=== PATIENT | male | born 1990 | race American Indian/Alaskan Native ===

== ENCOUNTER 2017-07-20 00:40 | Emergency (ER) | payer BC ==
[2017-07-20 01:39] LABS: Basophils % (Auto) 1.1 % (0.0-1.8); Eosinophils % (Auto) 1.7 % (0.0-4.3); Hematocrit 48.4 % (35.5-45.6); Hemoglobin 16.6 gm/dl (11.8-15.2); Mean Corpuscular HGB Conc 34 % (32-34); Mean Corpuscular Hemoglobin 31 pg (28-32); Mean Corpuscular Volume 90 fl (84-94); Platelet Count 217 K/mm3 (140-440); Red Blood Count 5.36 M/mm3 (3.65-5.03); Red Cell Distribution Width 13.1 % (13.2-15.2); White Blood Count 7.3 K/mm3 (4.5-11.0)
[2017-07-20 01:54] LABS: Anion Gap 20 mmol/L; BUN/Creatinine Ratio 16; Blood Urea Nitrogen 19 mg/dL (9-20); Calcium 9.8 mg/dL (8.4-10.2); Carbon Dioxide 24 mmol/L (22-30); Chloride 100.7 mmol/L (98-107); Glucose 102 mg/dL (75-100); Potassium 3.5 mmol/L (3.6-5.0); Sodium 141 mmol/L (137-145)
--- NOTE | 2017-07-20 04:10 | Cat Scan Report ---
FINAL REPORT EXAM: CT HEAD/BRAIN WO CON HISTORY: Right Face and arm numbness TECHNIQUE: CT imaging acquired through the head without intravenous contrast. Transaxial reformations are provided. PRIORS: None. FINDINGS: The ventricles, cisterns and sulci are normal. No intraparenchymal or extra-axial mass, hemorrhage, or mass effect. Vora and white-matter differentiation is normal. Normal spherical shape of the globes. Paranasal sinuses and mastoid air cells are clear. No skull or facial fracture visualized. IMPRESSION: No acute intracranial abnormality. Consider additional imaging including MRI for worsening/persistent symptoms.
--- NOTE | 2017-07-20 07:48 | Emergency Department Report ---
ED Neuro Deficit HPI - General Chief Complaint: Neuro Symptoms/Deficit Stated Complaint: NUMBNESS R SIDE OF FACE Time Seen by Provider: 07/20/17 07:44 Source: patient Mode of arrival: Ambulatory Limitations: No Limitations - History of Present Illness Initial Comments: Patient airport and numbness to right face and right arm since Wednesday afternoon. He states that he has limited range of motion in his left arm. Patient's that he has pain on movement to his right scapula. Pain is 10 out of 10 and achy. Denies any loss of sensation to his right upper extremity. He said he was doing pushups but this is nothing new for him and he went to bed and when he woke up he started having symptoms denies any chest pain. He is also complaining the pain to the right side of his neck. Denies any fever or chills. Denies any headache or dizziness. Patient is HIV positive but he does not follow-up with any specific clinic. He does not have a primary care doctor but he said he would like to be referred to one. Denies any nausea or vomiting. Denies any abdominal or back pain Onset/Timin -: days(s) Location: right arm (Limited range of motion), other (left shoulder and left neck) Presenting Symptoms: Present: Weak/Paralyzed One Side (she reported numbness to right facial area and right arm also reported pain to right shoulder, and right neck and right scapula) History of same: No Place: home Severity: severe Quality: numb, constant Improves With: rest Worsens With: none On Anticoagulants: No Context: sudden onset Associated Symptoms: weakness (right upper extremity). denies: confusion, chest pain, cough, diaphoresis, fever/chills, headaches, loss of appetite, malise, nausea/vomiting, vertigo, seizures, shortness of breath, syncope Treatments Prior to Arrival: none - Related Data Home Medications: Previous Rx's Medication Instructions Recorded Last Taken Type Cephalexin [Keflex] 500 mg PO Q8HR #21 cap 07/20/17 Unknown Rx Naproxen [Naprosyn TAB] 500 mg PO BID PRN #10 tablet 07/20/17 Unknown Rx Allergies/Adverse Reactions: Allergies Allergy/AdvReac Type Severity Reaction Status Date / Time sulfamethoxazole Allergy Anaphylaxis Verified 07/20/17 01:08 [From Bactrim] trimethoprim [From Bactrim] Allergy Anaphylaxis Verified 07/20/17 01:08 ED Review of Systems ROS: Stated complaint: NUMBNESS R SIDE OF FACE Other details as noted in HPI Comment: All other systems reviewed and negative Constitutional: no symptoms reported Respiratory: no symptoms reported Cardiovascular: denies: chest pain, palpitations, dyspnea on exertion, orthopnea , edema, syncope, paroxysmal nocturnal dyspnea Gastrointestinal: denies: abdominal pain, nausea, vomiting, diarrhea, constipation, hematemesis, melena, hematochezia Genitourinary: denies: urgency, dysuria, frequency, hematuria, discharge, testicular pain, testicular mass Musculoskeletal: arthralgia. denies: back pain, joint swelling, myalgia Skin: denies: rash Neurological: weakness, numbness. denies: headache, paresthesias, confusion, abnormal gait, vertigo Psychiatric: denies: anxiety ED Past Medical Hx - Past Medical History Previous Medical History?: Yes Hx HIV: Yes - Surgical History Past Surgical History?: No - Family History Family history: no significant - Social History Smoking Status: Current Every Day Smoker Substance Use Type: None Other Social History: Patient is single - Medications Home Medications: Home Medications Medication Instructions Recorded Confirmed Last Taken Type Cephalexin [Keflex] 500 mg PO Q8HR #21 cap 07/20/17 Unknown Rx Naproxen [Naprosyn TAB] 500 mg PO BID PRN #10 tablet 07/20/17 Unknown Rx ED Neuro Physical Exam - General Limitations: No Limitations General appearance: alert, in no apparent distress Suspected Stroke: No - Head Head exam: Present: atraumatic, normocephalic, normal inspection - Expanded Head Exam Expanded Head exam: Absent: laceration, abrasion, contusion, hematoma, racoon eyes, daniels's sign, general tenderness, tenderness of temporal artery, CSF rhinorrhea , CSF otorrhea - Eye Eye exam: Present: normal appearance, PERRL, EOMI. Absent: nystagmus, periorbital swelling, periorbital tenderness Pupils: Present: normal accommodation - ENT ENT exam: Present: normal exam, normal orophraynx, mucous membranes moist, TM's normal bilaterally, normal external ear exam, other (normal facial sensation. Patient able to open and close mouth without difficulties) - Neck Neck exam: Present: normal inspection, tenderness (right lateral neck), full ROM. Absent: meningismus, lymphadenopathy - Expanded Neck Exam Expanded Neck exam: Present: tenderness (lateral neck), other (C-spine tenderness). Absent: midline deformity, anterior neck swelling, tracheal deviation - Respiratory Respiratory exam: Present: normal lung sounds bilaterally. Absent: respiratory distress, wheezes, rales, rhonchi, stridor, chest wall tenderness, accessory muscle use, decreased breath sounds, prolonged expiratory - Cardiovascular Cardiovascular Exam: Present: normal rhythm, tachycardia, normal heart sounds. Absent: systolic murmur, diastolic murmur - GI/Abdominal GI/Abdominal exam: Present: soft, normal bowel sounds. Absent: distended, tenderness, guarding, rebound, rigid, organomegaly, mass, bruit, pulsatile mass , hernia - Extremities Exam Extremities exam: Present: normal inspection, tenderness (palpated at right shoulder blade joint), normal capillary refill, other (no clubbing cyanosis or edema to extremities, +2 pulses to all extremities. No neurovascular compromise ). Absent: full ROM (I did range of motion to right upper extremity at shoulder and arm), pedal edema, joint swelling, calf tenderness - Expanded Upper Extremity Exam Right General: Present: normal inspection. Absent: laceration, abrasion, nail injury (#), foreign body, amputation, avulsion Shoulder Exam: Present: normal inspection, tenderness. Absent: full ROM ( Limited range of motion to right shoulder), swelling, abrasion, laceration, ecchymosis, deformity, crepidus, dislocation, erythema, tenderness over AC joint Upper Arm exam: Present: normal inspection, full ROM. Absent: tenderness, swelling, abrasion, laceration, ecchymosis, deformity, crepidus, dislocation, erythema Elbow exam: Present: normal inspection, full ROM. Absent: tenderness, swelling , abrasion, laceration, ecchymosis, deformity, crepidus, dislocation, erythema, effusion, pain w/ pronation/supination, tenderness over radial head Forearm Wrist exam: Present: normal inspection, full ROM. Absent: tenderness, swelling, abrasion, laceration, ecchymosis, deformity, crepidus, dislocation, erythema, tenderness over anatomical snuff box, pain with axial thumb loading Hand Wrist exam: Present: normal inspection, full ROM. Absent: tenderness, swelling, abrasion, laceration, ecchymosis, deformity, crepidus, dislocation, erythema, amputation, nail avulsion, subungual hematoma Neuro motor exam: Present: wrist extension intact, thumb opposition intact, thumb IP flexion intact Neurosensory exam: Present: 2-point discrimination, radial nerve intact, ulnar nerve intact, median nerve intact Vascular: Present: normal capillary refill, radial pulse, brachial pulse, ulnar pulse. Absent: vascular compromise, Pallo, pulse deficit radial art, pulse deficit ulnar art, pulse deficit brachial art - Back Exam Back exam: Present: normal inspection, full ROM. Absent: tenderness, CVA tenderness (R), CVA tenderness (L), muscle spasm, paraspinal tenderness, vertebral tenderness, rash noted - Neurological Exam Neurological exam: Present: alert, oriented X3, normal gait, reflexes normal. Absent: motor sensory deficit ( 3/5 strength in right upper extremity normal sensation) - NIHSS Assessment Interval: Baseline 1a. Level of Consciousness: alert 1b. LOC Questions: answers correctly 1c. LOC Commands: performs tasks correctly 2. Best Gaze: normal 3. Visual: no visual loss 4. Facial Palsy: normal symmetrical movement 5b. Motor Arm Right: no drift 5a. Motor Arm Left: no drift 6a. Motor Leg Left: no drift 6b. Motor Leg Right: no drift 7. Limb Ataxia: absent 8. Sensory: normal 9. Best Language: no aphasia 10. Dysarthria: normal 11. Extinction/Inattention: no abnormality Total Score: 0 Stroke Severity: No Stroke Symptoms - Psychiatric Psychiatric exam: Present: normal affect, normal mood - Skin Skin exam: Present: warm, dry, intact, normal color. Absent: rash ED Course Vital Signs 07/20/17 07/20/17 07/20/17 00:55 07:51 08:09 Temperature 97.9 F 98.4 F Pulse Rate 111 H 63 Respiratory 18 17 17 Rate Blood Pressure 118/71 Blood Pressure 107/72 [Left] O2 Sat by Pulse 98 98 98 Oximetry 07/20/17 11:00 Temperature Pulse Rate 70 Respiratory 16 Rate Blood Pressure Blood Pressure 123/78 [Left] O2 Sat by Pulse 99 Oximetry - Reevaluation(s) Reevaluation #1: 07/20/17 09:54 Pt assessed by myself and Dr. Brown. He is having significant shoulder pain with passive range of motion but range of motion to shoulder and right upper extremity is diminished. Patient's CK is elevated and he is currently receiving an IV fluid normal saline 2 L. Patient also received Toradol 60 mg IM and Decadron 10 mg IM in emergency room. Reevaluation #2: 07/20/17 11:00 Status post IV fluid, IV Toradol and Decadron patient would full range of motion to all extremities. He said he still having some pain when he raises his right arm ovaries had but he is able to do that on active range of motion without any difficulties. He denies any numbness at present. - Lab Data Result diagrams: 07/20/17 01:13 07/20/17 01:13 Lab Results 07/20/17 07/20/17 07/20/17 Range/Units 01:13 01:13 01:13 WBC 7.3 (4.5-11.0) K/mm3 RBC 5.36 H (3.65-5.03) M/mm3 Hgb 16.6 H (11.8-15.2) gm/dl Hct 48.4 H (35.5-45.6) % MCV 90 (84-94) fl MCH 31 (28-32) pg MCHC 34 (32-34) % RDW 13.1 L (13.2-15.2) % Plt Count 217 (140-440) K/mm3 Lymph % (Auto) 34.8 (13.4-35.0) % Page % (Auto) 9.3 H (0.0-7.3) % Eos % (Auto) 1.7 (0.0-4.3) % Baso % (Auto) 1.1 (0.0-1.8) % Lymph # 2.5 (1.2-5.4) K/mm3 Page # 0.7 (0.0-0.8) K/mm3 Eos # 0.1 (0.0-0.4) K/mm3 Baso # 0.1 (0.0-0.1) K/mm3 Seg Neutrophils % 53.1 (40.0-70.0) % Seg Neutrophils # 3.9 (1.8-7.7) K/mm3 Sodium 141 (137-145) mmol/L Potassium 3.5 L (3.6-5.0) mmol/L Chloride 100.7 (98-107) mmol/L Carbon Dioxide 24 (22-30) mmol/L Anion Gap 20 mmol/L BUN 19 (9-20) mg/dL Creatinine 1.2 (0.8-1.5) mg/dL Estimated GFR > 60 ml/min BUN/Creatinine Ratio 16 % Glucose 102 H (75-100) mg/dL Calcium 9.8 (8.4-10.2) mg/dL Total Bilirubin 0.50 (0.1-1.2) mg/dL Direct Bilirubin < 0.2 (0-0.2) mg/dL AST 61 H (5-40) units/L ALT 28 (7-56) units/L Alkaline Phosphatase 55 (35-129) units/L Total Creatine Kinase 1813 H (55-170) units/L Total Protein 7.8 (6.3-8.2) g/dL Albumin 4.3 (3.9-5) g/dL Albumin/Globulin Ratio 1.2 % Urine Color (Yellow) Urine Turbidity (Clear) Urine pH (5.0-7.0) Ur Specific [place] (1.003-1.030) Urine Protein (Negative) mg/dL Urine Glucose (UA) (Negative) mg/dL Urine Ketones (Negative) mg/dL Urine Blood (Negative) Urine Nitrite (Negative) Urine Bilirubin (Negative) Urine Urobilinogen (<2.0) mg/dL Ur Leukocyte Esterase (Negative) Urine WBC (Auto) (0.0-6.0) /HPF Urine RBC (Auto) (0.0-6.0) /HPF U Epithel Cells (Auto) (0-13.0) /HPF Hyaline Casts /LPF Urine Mucus /HPF 07/20/17 Range/Units 09:57 WBC (4.5-11.0) K/mm3 RBC (3.65-5.03) M/mm3 Hgb (11.8-15.2) gm/dl Hct (35.5-45.6) % MCV (84-94) fl MCH (28-32) pg MCHC (32-34) % RDW (13.2-15.2) % Plt Count (140-440) K/mm3 Lymph % (Auto) (13.4-35.0) % Page % (Auto) (0.0-7.3) % Eos % (Auto) (0.0-4.3) % Baso % (Auto) (0.0-1.8) % Lymph # (1.2-5.4) K/mm3 Page # (0.0-0.8) K/mm3 Eos # (0.0-0.4) K/mm3 Baso # (0.0-0.1) K/mm3 Seg Neutrophils % (40.0-70.0) % Seg Neutrophils # (1.8-7.7) K/mm3 Sodium (137-145) mmol/L Potassium (3.6-5.0) mmol/L Chloride (98-107) mmol/L Carbon Dioxide (22-30) mmol/L Anion Gap mmol/L BUN (9-20) mg/dL Creatinine (0.8-1.5) mg/dL Estimated GFR ml/min BUN/Creatinine Ratio % Glucose (75-100) mg/dL Calcium (8.4-10.2) mg/dL Total Bilirubin (0.1-1.2) mg/dL Direct Bilirubin (0-0.2) mg/dL AST (5-40) units/L ALT (7-56) units/L Alkaline Phosphatase (35-129) units/L Total Creatine Kinase (55-170) units/L Total Protein (6.3-8.2) g/dL Albumin (3.9-5) g/dL Albumin/Globulin Ratio % Urine Color Yellow (Yellow) Urine Turbidity Clear (Clear) Urine pH 5.0 (5.0-7.0) Ur Specific [place] 1.028 (1.003-1.030) Urine Protein 30 mg/dl (Negative) mg/dL Urine Glucose (UA) Neg (Negative) mg/dL Urine Ketones Neg (Negative) mg/dL Urine Blood Neg (Negative) Urine Nitrite Neg (Negative) Urine Bilirubin Neg (Negative) Urine Urobilinogen < 2.0 (<2.0) mg/dL Ur Leukocyte Esterase Neg (Negative) Urine WBC (Auto) 11.0 H (0.0-6.0) /HPF Urine RBC (Auto) 4.0 (0.0-6.0) /HPF U Epithel Cells (Auto) < 1.0 (0-13.0) /HPF Hyaline Casts 5 /LPF Urine Mucus 1+ /HPF Urine culture pending - Radiology Data Radiology results: report reviewed 3 right shoulder reveal no acute abnormality - Medical Decision Making ED course: Patient and present with numbness and pain to right upper extremity that has been ongoing since Wednesday of this week. He had no other symptoms and no headache, dizziness, nausea or vomiting, neck stiffness but he did have right -sided neck pain. No fever or chills. No back pain. No C-spine pain. Denies any injuries. Patient has a history of HIV but he is not being followed by infectious disease doctor because he said he hasn't had the time to find one. He is also requesting an primary care physician. CT scan of the had without contrast done which revealed no acute intracranial processes. Patient given 1 L for IV fluid after reporting that he did 100 pushups throughout that day and Wednesday and he went to bed and woke up with pain. CK was greater than 1800. He also received Toradol 60 mg IM and Decadron 10 mg IM. CBC is stable and reflect hemoconcentration which could mean the patient is dehydrated and CMP is stable. He said he felt better after medication and IV fluid and he is able to move all extremities without any difficulties and numbness has resolved. I discussed the patient all his labs and diagnostics results and he voiced understanding. Also discussed with him that he needs to return to emergency room for recheck tomorrow. I discussed with him that he has to have his CK levels rechecked to make sure that they are decreasing. I also instructed him to drink 2-3 L of fluid daily to include water, Gatorade. I discussed with him that he should try to avoid carbonated beverages. I also discussed the patient that he needs to follow-up at infectious disease doctor and I will refer him to an infectious disease doctor for follow-up HIV. He voices understanding and is discharged diagnoses and treatment plan and knows that he needs to return tomorrow approximately 11 AM to get CK level recheck. Patient is in stable condition discharged home with prescription for naproxen. - Core Measures Measure Exclusions: not indicated Critical care attestation.: If time is entered above; I have spent that time in minutes in the direct care of this critically ill patient, excluding procedure time. ED Disposition Clinical Impression: Arm paresthesia, right, Arthralgia of shoulder region, right, Elevated CK, UTI (urinary tract infection) with pyuria Neck muscle strain Qualifiers: Encounter type: initial encounter Qualified Code(s): S16.1XXA - Strain of muscle, fascia and tendon at neck level, initial encounter Rhabdomyolysis Qualifiers: Rhabdomyolysis type: traumatic Encounter type: initial encounter Qualified Code (s): T79.6XXA - Traumatic ischemia of muscle, initial encounter Disposition: TO HOME OR SELFCARE Is pt being admited?: No Does the pt Need Aspirin: No Condition: Stable Instructions: Muscle Strain (ED), Urinary Tract Infection in Men (ED), Rhabdomyolysis (ED), Paresthesia (ED), Arthralgia (ED) Additional Instructions: Please increase fluid intake to 2-3 L of fluid per day as instructed Please take Keflex 500 mg 3 times a day for elevated white count and urine Please follow up with primary care physician and infectious disease doctor as instructed and call today to schedule appointment for physical. avoid from doing any strenuous activity over the next week. take naproxen for pain as scheduled CT scan of the had and x-ray of your shoulder was normal. Remember to return to emergency room at 11 AM on 07/21/2017 for repeat CK level check. Prescriptions: Cephalexin [Keflex] 500 mg PO Q8HR #21 cap Naproxen [Naprosyn TAB] 500 mg PO BID PRN #10 tablet PRN Reason: Pain Referrals: JEFF BROTHERS MD [Staff Physician] - 2-3 Days LESTER MIRZA MD [Staff Physician] - 2-3 Days Forms: Work/School Release Form(ED)
[2017-07-20] MEDS ORDERED: DECADRON IM ONE (08:49)
[2017-07-20] MEDS ORDERED: TORADOL IM ONE (08:49)
--- NOTE | 2017-07-20 09:23 | XRay Report ---
RIGHT SHOULDER: Pain during nontraumatic exercise. Routine views demonstrate normal bony and soft tissue structures with normal joint alignment of the shoulder. IMPRESSION: Normal study.
[2017-07-20 09:50] LABS: Alanine Aminotransferase 28 units/L (7-56); Albumin 4.3 g/dL (3.9-5); Albumin/Globulin Ratio 1.2 %; Alkaline Phosphatase 55 units/L (35-129); Creatine Kinase 1813 units/L (55-170); Total Protein 7.8 g/dL (6.3-8.2)
[2017-07-20] MEDS ORDERED: NACL 0.9% 1000 ML 1,000 ML IV ONE (09:54)
[2017-07-20 10:07] LABS: Bilirubin,Direct < 0.2 mg/dL (0-0.2)
[2017-07-20 10:58] LABS: Bilirubin,Urine NEG (Negative); Blood,Urine NEG (Negative); Ketones,Urine NEG (Negative); Leukocyte Esterase,Urine NEG (Negative); Mucus,Urine 1+ /HPF; Nitrite,Urine NEG (Negative); Urobilinogen,Urine < 2.0 mg/dL (<2.0)
[2017-07-20 11:33] VITALS: BP 123/78
== END 2017-07-20 11:33 | disposition home or self-care (01) ==
LOC: ED 00:40
DX: S16.1XXA Strain of muscle, fascia and tendon at neck level, initial encounter (principal); N39.0 Urinary tract infection, site not specified; M62.82 Rhabdomyolysis; M25.512 Pain in left shoulder; R20.0 Anesthesia of skin; R74.8 Abnormal levels of other serum enzymes; F17.200 Nicotine dependence, unspecified, uncomplicated; Z88.8 Allergy status to other drugs, medicaments and biological substances; X58.XXXA Exposure to other specified factors, initial encounter; Y93.89 Activity, other specified; Y99.8 Other external cause status; Y92.89 Other specified places as the place of occurrence of the external cause
CPT/HCPCS: 36415; 70450; 73030; 80048; 80074; 81001; 82550; 85025; 87086; 96360; 96372; 99284; J1100; J1885; J7030

== ENCOUNTER 2018-01-26 10:42 | Emergency (ER) | payer BC ==
[2018-01-26 11:26] VITALS: BP 105/61
[2018-01-26] MEDS ORDERED: DECADRON IM STA (12:20)
[2018-01-26] MEDS ORDERED: BENADRYL IM ONE (12:20)
--- NOTE | 2018-01-26 12:20 | Emergency Department Report ---
ED Rash HPI - HPI Chief Complaint: Skin Rash Stated Complaint: RASH Time Seen by Provider: 01/26/18 12:01 Duration: 4 Days Location: Chest, Back, Upper Extremities Suspected Cause: Unknown Rash Symptoms: Yes Itching, No Facial Swelling, No Tongue/Oral Swelling, No Breathing Difficulties, No Choking Sensation, No Wheezing/Dyspnea, No Peeling, No Blistering, No Fever, No Malaise, No Myalgias Severity: severe Other History: Patient here complaining of rash 4 days of itching. He said he has been using hydrogen peroxide on the rash. He reports severe itching. Patient has a history of HIV and has not been followed by infectious disease. He said he was on medication but he came off several months ago. Patient does have access to primary care. Patient reports that he is not sure what causes a rash but he reported new soap larger detergents. Denies any respiratory symptoms. Denies any fever or chills or nausea or vomiting. ED Review of Systems ROS: Stated complaint: RASH Other details as noted in HPI Comment: All other systems reviewed and negative Constitutional: no symptoms reported ENT: denies: throat pain Respiratory: no symptoms reported Cardiovascular: denies: chest pain, palpitations, dyspnea on exertion, edema, syncope, paroxysmal nocturnal dyspnea Gastrointestinal: denies: nausea, vomiting Musculoskeletal: denies: arthralgia Skin: rash, pruritus Neurological: denies: headache ED Past Medical Hx - Past Medical History Previous Medical History?: Yes Hx HIV: Yes - Surgical History Past Surgical History?: No - Social History Smoking Status: Current Every Day Smoker Substance Use Type: Alcohol - Medications Home Medications: Home Medications Medication Instructions Recorded Confirmed Last Taken Type Cephalexin [Keflex] 500 mg PO Q8HR #21 cap 07/20/17 Unknown Rx Naproxen [Naprosyn TAB] 500 mg PO BID PRN #10 tablet 07/20/17 Unknown Rx diphenhydrAMINE [Benadryl CAP] 50 mg PO Q8HR PRN #12 capsule 01/26/18 Unknown Rx predniSONE [Deltasone] 50 mg PO QDAY 5 Days #5 tab 01/26/18 Unknown Rx Rash Exam - Exam General: Vital signs noted. No distress. Alert and acting appropriately. This is a 27-year-old male well-nourished well-developed in no acute distress. HEENT: No Periorbital Edema, No Conjuctival Injection, No Chemosis, No Perioral Edema, No Tongue Edema, No Uvular Edema, No Compromised Airway, No Drooling Lungs: Yes Good Air Exchange, No Wheezes, No Ronchi, No Stridor, No Cough, No Labored Respirations, No Retractions, No Use of Accessory Muscles, No Other Abnormal Lung Sounds Heart: Yes Regular (S1 and S2), No Murmur Skin: Yes Maculopapular Rash (anteriorly and posteriorly. Upper extremities.), Yes Erythema, No Morbilliform rash, No Bulla(e), No Excoriations, No Weeping, No Tenderness, No Edema, No Encrustations Other: Positive: Abdomen Normal, Neurologic Normal, Musculoskeletal Normal ED Course Vital Signs 01/26/18 11:23 Temperature 97.2 F L Pulse Rate 73 Respiratory 18 Rate Blood Pressure 105/61 O2 Sat by Pulse 100 Oximetry - Reevaluation(s) Reevaluation #1: 01/26/18 12:27 Patient received Benadryl 50 mg IM and Decadron 10 mg IM for contact dermatitis. ED Medical Decision Making - Medical Decision Making ED course: Patient here with maculopapular rash with appear to be contact dermatitis. He is stable. Vital signs are stable. Patient given Decadron 10 mg IM and Benadryl 50 mg IM without any adverse reaction. Patient will be discharged home with prescription for prednisone and Benadryl and to follow up with his primary care physician and 2-3 days. He does not have a primary care physician although he does have access so I will refer him to outside [facility] and also Dr. Toan Pradhan and Dr. shelton who is appliance mechanic. Critical care attestation.: If time is entered above; I have spent that time in minutes in the direct care of this critically ill patient, excluding procedure time. ED Disposition Clinical Impression: Pruritic dermatitis Contact dermatitis Qualifiers: Contact dermatitis type: allergic Contact dermatitis trigger: unspecified trigger Qualified Code(s): L23.9 - Allergic contact dermatitis, unspecified cause Disposition: - TO HOME OR SELFCARE Is pt being admited?: No Does the pt Need Aspirin: No Condition: Stable Instructions: Contact Dermatitis (ED), Itchy Skin (ED) Additional Instructions: Please follow up with appliance mechanic as instructed Take medication as instructed please do not drive or operate heavy machinery while taking Benadryl as this medication causes drowsiness See primary care referral for Dr. Toan Pradhan and also some [facility] Prescriptions: diphenhydrAMINE [Benadryl CAP] 50 mg PO Q8HR PRN #12 capsule PRN Reason: contact dermatitis predniSONE [Deltasone] 50 mg PO QDAY 5 Days #5 tab Referrals: TOAN PRADHAN MD [Staff Physician] - 3-5 Days SKYE PRUETT MD [Staff Physician] - 3-5 Days [facility] [Outside] - 3-5 Days Forms: Accompanied Note, Work/School Release Form(ED)
== END 2018-01-26 12:36 | disposition home or self-care (01) ==
LOC: ED 10:42
DX: L25.9 Unspecified contact dermatitis, unspecified cause (principal); F17.200 Nicotine dependence, unspecified, uncomplicated
CPT/HCPCS: 96372; 99282; J1100; J1200